=== PATIENT | male | born 1955 | race Caucasian/White ===

== ENCOUNTER 2018-10-16 14:32 | Inpatient (IN) | payer OTHER ==
[~2018-10-16] VITALS: Ht 175.3 cm; Wt 96.0 kg
--- NOTE | 2018-10-16 14:39 | NUR ---
EMS TO ER ROOM 15, TO BED
--- NOTE | 2018-10-16 14:44 | NUR ---
PT STATES SUDDEN OF ABDOMINAL PAIN THIS MORNING. PT HAS PAIN IN ALL QUADRANTS. ABDOMEN IS DISTENDED AND HARD, PAIN INCREASES WITH PALPATION. PT IS AOX4. DENIES ANY C/P, SOB, OR WEAKNESS. \\ PT RECIEVED 100 MCG OF FENTYNAL BY EMS PRIOR TO ARRIVAL.
[2018-10-16 14:53] LABS: HEMATOCRIT 45.9 % (39.0-50.0); HEMOGLOBIN 15.1 g/dl (14.0-18.0); IMMATURE GRANULOCYTES 0.4 % (0.0-5.0); MEAN CELL VOLUME 86.4 fL CALC (80.0-100.0); MEAN CORPUSCULAR HGB 28.4 pG CALC (26.0-32.0); MEAN CORPUSCULAR HGB CONC 32.9 g/L CALC (32.0-36.0); NEUT# 8.7 thou/uL (1.82-7.42); RED BLOOD COUNT 5.31 mill/uL (4.70-6.10); RED CELL DISTRI WIDTH 13.9 % (11.5-15.5)
[2018-10-16 14:56] LABS: GFR > 60 ML/MIN (>=60 (CALC)); GFR FOR AFR.AMER. > 60 ML/MIN (>=60 (CALC))
[2018-10-16 15:07] LABS: ALBUMIN 4.4 g/dL (3.2-5.0); ALKALINE PHOSPHATASE 90 u/l (38-126); BILIRUBIN, TOTAL 0.7 mg/dL (0.0-1.4); BUN 16 mg/dL (8-23); BUN/CREATININE RATIO 20 (12-20 (CALC)); CARBON DIOXIDE 24 mmol/l (22-30); CHLORIDE 102 mmol/l (95-108); CREATININE 0.8 mg/dL (0.7-1.3); GFR > 60 ML/MIN (>=60 (CALC)); GFR FOR AFR.AMER. > 60 ML/MIN (>=60 (CALC)); SGOT/AST 28 u/l (19-48); SODIUM 138 mmol/l (137-146); TOTAL PROTEIN 7.3 g/dL (6.3-8.2)
[2018-10-16] MEDS ORDERED: ASPIRIN81 MG PO (15:11)
[2018-10-16] MEDS ORDERED: METOPROL TAR25 MG PO (15:12)
[2018-10-16] MEDS ORDERED: [UNRECOGNIZED DRUG - OTHER] (15:12)
[2018-10-16] MEDS ORDERED: METFORMIN500 MG PO (15:13)
[2018-10-16] MEDS ORDERED: GLIPIZIDE5 MG PO (15:13)
[2018-10-16] MEDS ORDERED: LISINOPRIL20 MG PO (15:13)
[2018-10-16] MEDS ORDERED: LIPITOR20 MG PO (15:14)
[2018-10-16] MEDS ORDERED: HUMULIN 70/30 SC (15:14)
[2018-10-16] MEDS ORDERED: FLONASE AL50 MCG/ACT (15:14)
[2018-10-16] MEDS ORDERED: HUMULIN N100 UNIT/M SC (15:15)
[2018-10-16 15:17] LABS: ANION GAP 17 (6-22 (CALC)); LIPASE 5551 u/l (23-300); POTASSIUM 5.4 mmol/l (3.5-5.1)
--- NOTE | 2018-10-16 15:44 | NUR ---
PT RESTING ON STRETCHER, STATES PAIN HAS DECREASED BUT STILL THERE.
--- NOTE | 2018-10-16 16:27 | NUR ---
[facility] CALLED FOR REPORT. [facility] BATTERY TEST ENGINEER ACCEPTED PT
--- NOTE | 2018-10-16 16:34 | NUR ---
PT ARRIVED TO FLOOR IN STABLE CONDITION VIA STRETCHER, ACCOMPANIED BY ER STAFF AND TWO GUARD; PT AMBULATE TO BED WITH SLOW STEADY GAIT; BED WT OBTAINED AND VITALS; A/O X3; RESP EVEN AND UNLABORED ON ROOM AIR; SKIN INTACT; #20G EMS SITE TO ; FLUSHED WELL; C/O OF LOWER ABD PAIN; NO S/S OF DISTRESS NOTED; PT ADVISE THAT MD ORDER UA; NPO; VERBALIZE UNDERSTANDING; ORIENT TO ROOM AND CALL CH SYSTEM;
--- NOTE | 2018-10-16 16:39 | NUR ---
Admission Note Report Given to: DIPAK ENG Transported by: Wheelchair X Stretcher Transported with: X Nurse Transporter X Patent IV O2 Corporate Planner [place] [facility] [place]
[2018-10-16 17:00] VITALS: BP 160/77
--- NOTE | 2018-10-16 18:21 | NUR ---
DR MELLO NOTIFIED ABOUT PT'S PAIN
[2018-10-16 19:12] VITALS: BP 154/80
--- NOTE | 2018-10-16 20:16 | NUR ---
PT. C/O ABDOMINAL PAIN 10/29, MEDICATED WITH ORDERED DILAUID; WILL REASSESS. UPDATED ON POC. ASSESSMENT COMPLETED; IV SITE PATENT AND ORDERED IVF INFUSING. GUARDS IN AT BEDSIDE; SHACKLE IN PLACE TO LEFT LEG. INSTRUCTED PT. TO CALL FOR ANY NEEDS; VERBALIZES UNDERSTANDING. CALL LIGHT IS IN REACH.
[2018-10-16 21:16] LABS: URINE BILIRUBIN - DIPSTICK NEGATIVE (NEGATIVE); URINE BLOOD DIPSTICK NEGATIVE (NEGATIVE); URINE COLOR YELLOW; URINE GLUCOSE - DIPSTICK 500 mg/dL (NEGATIVE); URINE KETONE NEGATIVE (NEGATIVE); URINE LEUK ESTERASE NEGATIVE (NEGATIVE); URINE NITRITE - DIPSTICK NEGATIVE (Negative); URINE PROTEIN - DIPSTICK NEGATIVE (NEG-TRACE); URINE SPECIFIC GRAVITY <=1.005; URINE UROBILINOGEN - DIPSTICK 0.2 E.U./dL (0.2)
--- NOTE | 2018-10-16 22:09 | NUR ---
PT. C/O PAIN, MEDICATED WITH ORDERED PRN LORTAB; WILL REASSESS. DENIES FURTHER NEEDS. CALL LIGHT IS IN REACH. GUARDS X2 REMAIN AT BEDSIDE.
--- NOTE | 2018-10-16 23:59 | NUR ---
RESTING IN BED WITH NO DISTRESS NOTED. RE-EDUCATED ON PAIN MEDICATION FREQUENCIES; VERBALIZES UNDERSTANDING.
--- NOTE | 2018-10-17 02:01 | NUR ---
C/O ABD PAIN, MEDICATED WITH ORDERED LORTAB; WILL REASSESS.
--- NOTE | 2018-10-17 02:16 | NUR ---
NEW IV STARTED X1 ATTEMPT TO AND, #22 GAUGE. PT. TOLERATED WELL. EMS SITE REMOVED FROM [facility], CATHETER TIP INTACT.
--- NOTE | 2018-10-17 02:54 | NUR ---
WENT INTO ROOM TO REASSESS PAIN; PT. RESTING IN BED WITH EYES CLOSED. RESP. EVEN AND UNLABORED.
[2018-10-17 04:34] VITALS: BP 148/69
--- NOTE | 2018-10-17 04:40 | NUR ---
PT. C/O ABD PAIN 11/29; MEDICATED WITH ORDERED DILAUDID; WILL REASSESS. DENIES FURTHER NEEDS. GUARDS REMAIN AT BEDSIDE. CALL LIGHT IS IN REACH.
[2018-10-17 05:54] LABS: HEMATOCRIT 43.9 % (39.0-50.0); HEMOGLOBIN 14.2 g/dl (14.0-18.0); IMMATURE GRANULOCYTES 1.7 % (0.0-5.0); MEAN CELL VOLUME 87.5 fL CALC (80.0-100.0); MEAN CORPUSCULAR HGB 28.3 pG CALC (26.0-32.0); MEAN CORPUSCULAR HGB CONC 32.3 g/L CALC (32.0-36.0); NEUT# 15.14 thou/uL (1.82-7.42); RED BLOOD COUNT 5.02 mill/uL (4.70-6.10)
[2018-10-17 06:02] LABS: ALBUMIN 3.7 g/dL (3.2-5.0); ALKALINE PHOSPHATASE 66 u/l (38-126); AMYLASE 268 u/l (30-110); ANION GAP 16 (6-22 (CALC)); BILIRUBIN, TOTAL 0.5 mg/dL (0.0-1.4); BUN 26 mg/dL (8-23); BUN/CREATININE RATIO 26 (12-20 (CALC)); CARBON DIOXIDE 24 mmol/l (22-30); CHLORIDE 103 mmol/l (95-108); GFR > 60 ML/MIN (>=60 (CALC)); GFR FOR AFR.AMER. > 60 ML/MIN (>=60 (CALC)); LIPASE 1398 u/l (23-300); MAGNESIUM 1.2 mg/dL (1.6-2.3); SGOT/AST 16 u/l (19-48); SODIUM 139 mmol/l (137-146); TOTAL PROTEIN 6.1 g/dL (6.3-8.2)
--- NOTE | 2018-10-17 07:15 | NUR ---
PT REPORT RECIEVED FROM KADI PEREZ. PT RESTING. NO S/S OF DISTRESS. CALL LIGHT IN REACH. WILL CONTINUE TO MONITOR.
[2018-10-17 08:41] VITALS: BP 147/73
--- NOTE | 2018-10-17 08:41 | NUR ---
PT A/O X3. SPEECH IS CLEAR. RESP EVEN AND UNLABORED. LUNG SOUNDS CLEAR. BOWEL SOUNDS ACTIVE X3. PT C/O ACHING ABOMINAL PAIN. 8 OUT OF 10 ON PAIN SCALE. ALSO ABDOMINAL TENDERNESS IN ALL FOUR QUADRANTS. MEDICATED W/ ONE LORTAB 5/325 PO. REPOSITIONED FOR COMFORT. STRONG RADIAL AND PEDAL PULSES. #22 RH LR @100. SITE APPEARS HEALTHY. SKIN INTACT. PT DENIES ANY FURTHER NEEDS. POC DISCUSSED. SAFETY PRECAUTIONS IN PLACE. CALL LIGHT IN REACH. WILL CONTINUE TO MONITOR.
--- NOTE | 2018-10-17 11:03 | NUR ---
DR. FRITZ IN TO SEE PT
--- NOTE | 2018-10-17 11:50 | NUR ---
PT C/O ACHING ABDOMINAL PAIN 7 OUT OF 10 ON PAIN SCALE. MEDICATED W/ 0.5 MG DILAUDID IV. RELAXATION TECHNIQUES IN PLACE. PT DENIES ANY FURTHER NEEDS. CALL LIGHT IN REACH. WILL CONTINUE TO MONITOR.
--- NOTE | 2018-10-17 15:32 | NUR ---
PT WATCHING TELEVISION. NO C/O PAIN OR NEEDS AT THIS TIME. CALL LIGHT IN REACH. GUARDS AT BEDSIDE. WILL CONTINUE TO MONITOR.
[2018-10-17 15:40] VITALS: BP 134/68
[2018-10-17 19:10] VITALS: BP 157/70
--- NOTE | 2018-10-17 19:10 | NUR ---
REPORT RECEIVED FROM DAY NURSE. PT IS IN LOW FOWLERS POSITION, REPORTS PAIN IMPROVED, "BUT STILL THERE." DENIES N/V AT THIS TIME. PT ENCOURAGED TO CALL IF ANY NEEDS ARISE. GUARDS X2 AT BEDSIDE.
--- NOTE | 2018-10-17 21:58 | NUR ---
PT MEDICATED FOR PAIN REPORTED 01/29. PT IS MOANING/GROANING W/PAIN. IVF RUNNING TO SITE IN RFA/SITE APPEARS HEALTHY. WEAK PEDAL PULSE TO RLE. ABD TENDER THROUGHOUT W/HYPOACTIVE BOWEL SOUNDS TO RUQ/RLQ. SKIN IS INTACT NEURO'S INTACT. LOCX4. GUARDS X2 AT BEDSIDE.
[2018-10-18] VITALS (7 sets, daily range): BP systolic 143–166; BP diastolic 64–83
--- NOTE | 2018-10-18 00:38 | NUR ---
PT MEDICATED ORDERS PROVIDE AND FOR PAIN REPORTED 10/29 IN ABD. PT TOOK TWO SMALL SIPS W/PO MEDICATION ORDERED/OTHERWISE NPO. GUARDS 2X ARE AT BEDSIDE. PT DENIES ANY OTHER NEEDS AT THIS TIME. CALL LIGHT IS AT SIDE. PT HAS BEEN ENCOURAGED TO CALL IF ANY NEEDS ARISE.
--- NOTE | 2018-10-18 04:38 | NUR ---
PT MEDICATED FOR PAIN AND ORDERS PROVIDE FOR BP/PROVIDED ICE CHIPS/REQUEST. DENIES ANY OTHER NEEDS AT THIS TIME. CALL LIGHT AT SIDE AND GUARDS X2 IN ROOM
[2018-10-18 06:01] LABS: HEMATOCRIT 43.3 % (39.0-50.0); HEMOGLOBIN 13.9 g/dl (14.0-18.0); IMMATURE GRANULOCYTES 0.8 % (0.0-5.0); MEAN CELL VOLUME 88.9 fL CALC (80.0-100.0); MEAN CORPUSCULAR HGB 28.5 pG CALC (26.0-32.0); MEAN CORPUSCULAR HGB CONC 32.1 g/L CALC (32.0-36.0); NEUT# 12.2 thou/uL (1.82-7.42); RED BLOOD COUNT 4.87 mill/uL (4.70-6.10); RED CELL DISTRI WIDTH 14.4 % (11.5-15.5)
[2018-10-18 06:06] LABS: ALBUMIN 3.7 g/dL (3.2-5.0); ALKALINE PHOSPHATASE 60 u/l (38-126); AMYLASE 115 u/l (30-110); ANION GAP 15 (6-22 (CALC)); BUN 20 mg/dL (8-23); BUN/CREATININE RATIO 25 (12-20 (CALC)); CARBON DIOXIDE 27 mmol/l (22-30); CHLORIDE 99 mmol/l (95-108); CREATININE 0.8 mg/dL (0.7-1.3); GFR > 60 ML/MIN (>=60 (CALC)); GFR FOR AFR.AMER. > 60 ML/MIN (>=60 (CALC)); LIPASE 296 u/l (23-300); MAGNESIUM 1.4 mg/dL (1.6-2.3); POTASSIUM 4.6 mmol/l (3.5-5.1); SGOT/AST 17 u/l (19-48); SODIUM 136 mmol/l (137-146); TOTAL PROTEIN 6.2 g/dL (6.3-8.2)
--- NOTE | 2018-10-18 07:10 | NUR ---
PT REPORT RECIEVED FROM KADI WILLOUGHBY. PT RESTING. NO S/S OF DISTRESS. CALL LIGHT IN REACH. WILL CONTINUE TO MONITOR.
--- NOTE | 2018-10-18 07:54 | NUR ---
PT A/O X3. SPEECH IS CLEAR. RESP EVEN AND UNLABORED. LUNG SOUNDS CLEAR. BOWEL SOUNDS HYPOACTIVE X4. TENDERNESS IN ALL 4 QUADS. PT C/O ACHING ABDOMINAL PAIN; 7 OUT OF 10 ON PAIN SCALE. MEDICATED W/ 0.5 MG DILAUDID IV. REPOSITIONED FOR COMFORT. STRONG RADIAL AND PEDAL PULSES. #22 RFA LR @100. SITE APPEARS HEALTHY. PT DENIES ANY FURTHER NEEDS. POC DISCUSSED. SAFETY PRECAUTIONS IN PLACE. GUARDS AT BEDSIDE. CALL LIGHT IN REACH. WILL CONTINUE TO MONITOR.
--- NOTE | 2018-10-18 12:10 | NUR ---
PT WATCHING TELEVISION. NO C/O PAIN OR NEEDS. GURADS AT BEDSIDE. CALL LIGHT IN REACH. WILL CONTINUE TO MONITOR.
--- NOTE | 2018-10-18 16:26 | NUR ---
PT C/O ACHING ABDOMINAL PAIN; 7 OUT OF 10 ON PAIN SCALE. RELAXATION TECHNIQUES IN PLACE. NO FURTHER NEEDS EXPRESSED BY PT. GUARDS AT BEDSIDE. CALL LIGHT IN REACH. WILL CONTINUE TO MONITOR.
--- NOTE | 2018-10-18 20:39 | NUR ---
PT IV PUMP WAS SOUNDING, RESET TO FINISH FLUIDS. PT ASSESSED AT THIS TIME. REPORTS NORMAL STOOL TODAY, ABD TENDER W/ACTIVE BOWEL SOUNDS IS FIRM/DIST. LUNG SOUNDS ARE CLEAR THROUGHOUT. PT REPORTS EATING AND DRINKING TODAY AND FEELING "MUCH BETTER SINCE GETTING TO EAT." WILL CONITNUE TO MONITOR AND FOLLOW-UP WITH MEDICATIONS ORDERS PROVIDE. GUARDS X2 AT BEDSIDE AND CALL LIGHT AT SIDE.
[2018-10-19 01:00] VITALS: BP 149/71
--- NOTE | 2018-10-19 01:02 | NUR ---
PT MEDICATED ORDERS PROVIDE. PT IN HIGH FOWLERS WATCHING TV W/GUARDS X2 AT BEDSIDE. CALL LIGHT NEXT TO PT HAND, ICE PROVIDED, PT DENIES ANY OTHER NEEDS AT THIS TIME.
--- NOTE | 2018-10-19 03:45 | NUR ---
PT SLEEPING W/GUARDS X2 AT BEDSIDE. NO S/O DISTRESS NOTED AT THIS TIME. CALL LIGHT AT BEDSIDE.
[2018-10-19 04:13] VITALS: BP 151/71
[2018-10-19 05:02] LABS: HEMATOCRIT 41.4 % (39.0-50.0); HEMOGLOBIN 13.5 g/dl (14.0-18.0); MEAN CELL VOLUME 87.7 fL CALC (80.0-100.0); MEAN CORPUSCULAR HGB 28.6 pG CALC (26.0-32.0); MEAN CORPUSCULAR HGB CONC 32.6 g/L CALC (32.0-36.0); NEUT# 12.25 thou/uL (1.82-7.42); RED BLOOD COUNT 4.72 mill/uL (4.70-6.10); RED CELL DISTRI WIDTH 14.3 % (11.5-15.5)
[2018-10-19 05:19] LABS: ALBUMIN 3.5 g/dL (3.2-5.0); ALKALINE PHOSPHATASE 67 u/l (38-126); AMYLASE 38 u/l (30-110); ANION GAP 15 (6-22 (CALC)); BILIRUBIN, TOTAL 1.1 mg/dL (0.0-1.4); BUN 15 mg/dL (8-23); BUN/CREATININE RATIO 20 (12-20 (CALC)); CARBON DIOXIDE 26 mmol/l (22-30); CHLORIDE 99 mmol/l (95-108); CREATININE 0.7 mg/dL (0.7-1.3); GFR > 60 ML/MIN (>=60 (CALC)); GFR FOR AFR.AMER. > 60 ML/MIN (>=60 (CALC)); LIPASE 179 u/l (23-300); POTASSIUM 4.2 mmol/l (3.5-5.1); SGOT/AST 18 u/l (19-48); SODIUM 135 mmol/l (137-146); TOTAL PROTEIN 6.3 g/dL (6.3-8.2)
[2018-10-19 05:24] LABS: MAGNESIUM 1.8 mg/dL (1.6-2.3)
--- NOTE | 2018-10-19 06:00 | NUR ---
PT MEDICATED ORDERS PROVIDE. POC AND DIET DISCUSSED, PT REQUESTING TO REMAIN ON FULL LIQUID. PT UP USING RESTROOM W/GUARDS X2 AT SIDE UPON LEAVING THE ROOM.
--- NOTE | 2018-10-19 07:15 | NUR ---
PT REPORT RECIEVED FROM KADI WILLOUGHBY. PT RESTING. NO S/S OF DISTRESS. CALL LIGHT IN REACH. WILL CONTINUE TO MONITOR.
[2018-10-19 09:07] VITALS: BP 140/70
--- NOTE | 2018-10-19 09:09 | NUR ---
PT A/O X3. RESP EVEN AND UNLABORED. LUNG SOUNDS CLEAR. BOWEL SOUNDS ACTIVE X4. STRONG RADIAL AND PEDAL PULSES. #22 RFA LR @100. SITE APPEARS HEALTHY. PT C/O ACHING ABDOMINAL PAIN; 6 OUT OF 10 ON PAIN SCALE. MEDICATED W/ ONE LORTAB 5/325 PO. REPOSITIONED FOR COMFORT. PT DENIES ANY FURTHER NEEDS. GUARDS AT BESIDE. SAFETYV PRECUATIONS IN PLACE. CALL LIGHT IN REACH. WILL CONTINUE TO MONITOR.
[2018-10-19 11:26] VITALS: BP 149/72
--- NOTE | 2018-10-19 11:44 | NUR ---
PT WATCHING TELEVISION. NO C/O PAIN OR NEEDS. GUARDS AT BEDSIDE. CALL LIGHT IN REACH. WILL CONTINUE TO MONITOR.
[2018-10-19 11:53] VITALS: BP 149/72
--- NOTE | 2018-10-19 12:28 | NUR ---
D/C INSTRUCTIONS DISCUSSED W/ PT. PT STATES UNDERSTANDING. IV REMOVED. CATHETER INTACT. PT GETTING DRESSED. GUARDS AT BEDSIDE.
--- NOTE | 2018-10-19 12:41 | NUR ---
Discharge instructions given. Patient verbalizes understanding of same. [facility]. All belongings sent with pt.
== END 2018-10-19 12:38 | disposition designated cancer center or children's hospital (05) | DRG 439 ==
LOC: ED 14:32 → ED-I 15:15 → ED 15:33 → MS2 15:34
PROVIDERS: Family Medicine; ADMIT Internal Medicine Nephrology; ATTEND Internal Medicine Nephrology
DX: K85.90 Acute pancreatitis without necrosis or infection, unspecified (principal); K86.2 Cyst of pancreas; E11.9 Type 2 diabetes mellitus without complications; I10 Essential (primary) hypertension; Z79.4 Long term (current) use of insulin
CPT/HCPCS: J1650; Q9967